=== PATIENT | female | born 1960 | race Two or more races ===

== ENCOUNTER 2018-10-01 09:31 | Outpatient (CLI) | payer OTHER | END 2018-10-01 14:25 | disposition home or self-care (01) | LOC: SONOGRAMA 09:31 | DX: E04.1 Nontoxic single thyroid nodule (principal) ==

== ENCOUNTER 2019-05-06 11:15 | Outpatient (CLI) | payer OTHER | END 2019-05-06 11:20 | disposition home or self-care (01) | LOC: SONOGRAMA 11:15 | DX: R22.1 Localized swelling, mass and lump, neck (principal) ==